=== PATIENT | female | born 1955 | race Caucasian/White ===

== ENCOUNTER → 2016-08-24 | Outpatient (CLI) | payer OTHER ==
[~2016-08-24] MED LIST: CALC1CAP8 PO; CHOL400T38 PO; FISH1CAP PO; GLUC500T8 PO; PANT40TA5 PO; VITA400C40 PO
[2016-08-24 16:03] LABS: PATH.CAST-FLAG NOT PRESENT; SPERM-FLAG NOT PRESENT; SRC-FLAG NOT PRESENT; XTAL-FLAG NOT PRESENT; YLC-FLAG NOT PRESENT
== END | disposition home or self-care (01) ==
LOC: STAR 14:46
PROVIDERS: ATTEND Urology
DX: Z01.818 Encounter for other preprocedural examination (principal); N39.46 Mixed incontinence
CPT/HCPCS: 81001; 87077; 87086; 87186; 93005